=== PATIENT | male | born 1960 | race Caucasian/White ===

== ENCOUNTER 2024-05-28 09:41 | Day surgery (SDC) | payer MEDICARE, BC ==
[~2024-05-28] VITALS: Ht 175.3 cm; Wt 98.5 kg
[~2024-05-28 09:41] MED LIST: Lactated Ringer's 1,000 ML IV ONE; propofoL 50 ML IV ONE
[2024-05-28] MEDS ORDERED: Aspir 8181 MG PO (10:16)
[2024-05-28] MEDS ORDERED: LISI5 PO (10:17)
[2024-05-28] MEDS ORDERED: Nexium40 MG PO (10:17)
[2024-05-28] MEDS ORDERED: JARDIANCE10 MG PO (10:17)
[2024-05-28] MEDS ORDERED: OZEMPIC2 MG/0.75 SQ (10:18)
[2024-05-28] MEDS ORDERED: NOVOLOG FL100 UNIT/3 (10:18)
[2024-05-28] MEDS ORDERED: METF500C (10:19)
[2024-05-28] MEDS ORDERED: TOUJEO SOL300 UNIT/2 (10:19)
[2024-05-28] MEDS ORDERED: ROSUVASTATIN CA10 MG PO (10:19)
[2024-05-28] MEDS ORDERED: Viagra100 MG PO (10:20)
[2024-05-28] MEDS ORDERED: Lactated Ringer's 1,000 ML IV ONE (10:55)
[2024-05-28 12:13] VITALS: BP 138/80
== END 2024-05-28 12:30 | disposition home or self-care (01) ==
LOC: ORSCSDS 09:41
PROVIDERS: Specialist
PROC: 0DJD8ZZ Inspection of Lower Intestinal Tract, Via Natural or Artificial Opening Endoscopic (ICD-10-PCS; principal; 2024-05-28 11:00)
PROC: 0D758ZZ Dilation of Esophagus, Via Natural or Artificial Opening Endoscopic (ICD-10-PCS; principal; 2024-05-28 11:00)
PROC: 0DB58ZX Excision of Esophagus, Via Natural or Artificial Opening Endoscopic, Diagnostic (ICD-10-PCS; principal; 2024-05-28 11:00)
PROC: 0DB68ZX Excision of Stomach, Via Natural or Artificial Opening Endoscopic, Diagnostic (ICD-10-PCS; principal; 2024-05-28 11:00)
DX: R13.10 Dysphagia, unspecified (principal); C7A.8 Other malignant neuroendocrine tumors; K29.50 Unspecified chronic gastritis without bleeding; K21.9 Gastro-esophageal reflux disease without esophagitis; R12 Heartburn; R19.4 Change in bowel habit; K64.8 Other hemorrhoids; K57.30 Diverticulosis of large intestine without perforation or abscess without bleeding; Z86.0101 Personal history of adenomatous and serrated colon polyps; E11.9 Type 2 diabetes mellitus without complications; Z79.82 Long term (current) use of aspirin; Z79.4 Long term (current) use of insulin; Z79.85 Long-term (current) use of injectable non-insulin antidiabetic drugs; Z79.84 Long term (current) use of oral hypoglycemic drugs; Z79.899 Other long term (current) drug therapy
CPT/HCPCS: 82947; 88305; 88341; 88342; C1769; J2704; J7120

== ENCOUNTER → 2024-07-31 | Outpatient (CLI) | payer MEDICARE, BC ==
[~2024-07-31] MED LIST changes: +Aspir 8181 MG PO; +JARDIANCE10 MG PO; +LISI5 PO; -Lactated Ringer's 1,000 ML IV ONE; +METF500C; +NOVOLOG FL100 UNIT/3; +Nexium40 MG PO; +OZEMPIC2 MG/0.75 SQ; +ROSUVASTATIN CA10 MG PO; +TOUJEO SOL300 UNIT/2; +Viagra100 MG PO; -propofoL 50 ML IV ONE
[2024-07-31 16:06] LABS: Creatinine, Urine Random 89.6 mg/dL (27.00-270.00)
[2024-07-31 16:09] LABS: Microalb/Creat Ratio UR, Rand 7.02 mg/g (0.000-30.000); Microalbumin, Random Urine 6.29 mg/L (0.000-20.000)
== END ==
LOC: LAB 11:30 → LAB SHORT 11:30
PROVIDERS: Internal Medicine
DX: Z12.5 Encounter for screening for malignant neoplasm of prostate (principal); Z11.8 Encounter for screening for other infectious and parasitic diseases
CPT/HCPCS: 82043; 82570